=== PATIENT | female | born 2000 | race American Indian/Alaskan Native ===

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

== ENCOUNTER 2019-07-21 16:32 | Emergency (ER) | payer SELFPAY ==
--- NOTE | 2019-07-21 16:57 | Emergency Department Report ---
Blank Doc - Documentation Documentation: 19-year-old female that presents with pelvic pain and vaginal discharge. This initial assessment/diagnostic orders/clinical plan/treatment(s) is/are subject to change based on patient's health status, clinical progression and re- assessment by fellow clinical providers in the ED. Further treatment and workup at subsequent clinical providers discretion. Patient/guardians urged not to elope from the ED as their condition may be serious if not clinically assessed and managed. Initial orders include: 1- Patient sent to [facility] for further evaluation and treatment 2- UA 3- pelvic exam to be done
[2019-07-21 18:16] LABS: Bacteria,Urine 1+ /HPF (Negative); Bilirubin,Urine NEG (Negative); Blood,Urine MOD (Negative); Color,Urine Yellow (Yellow); Protein,Urine <15 mg/dL mg/dL (Negative); Urobilinogen,Urine < 2.0 mg/dL (<2.0)
[2019-07-21 18:18] LABS: HCG Qualitative,Urine Negative (Negative)
--- NOTE | 2019-07-21 21:08 | Emergency Department Report ---
ED Female HPI - General Chief complaint: Urogenital-Female Stated complaint: PELVIC PAIN/CRAMPS Time Seen by Provider: 07/21/19 16:56 Source: patient Mode of arrival: Ambulatory Limitations: No Limitations - History of Present Illness Initial comments: 19-year-old -[place] female presents to the emergency room for pelvic pain 2 days. Patient states that she is constipated but last bowel movement was yesterday consisting of diarrhea 3-4 episodes. Patient also complains of clear vaginal discharge with no odor. Patient's last menstrual period was 07/14/2019. She is 1. Para 1. Patient is sexually active without protection one partner in the last 6 months. Patient last STD check was 1 year ago. MD Complaint: pelvic pain Onset/Timin -: days(s) Location: suprapubic Radiation: non-radiating Severity: mild Quality: cramping Consistency: intermittent Improves with: none Worsens with: none Are you Now?: No Last Menstrual Period: 07/14/19 EDC: 04/19/20 Associated Symptoms: vaginal discharge (clear no odor). denies: nausea/vomiting, fever/chills - Related Data Sexually active: Yes : 1 Para: 1 Home Medications Medication Instructions Recorded Confirmed Last Taken Ferrous Sulfate [Feosol] 325 mg PO QDAY 10/13/16 10/13/16 10/12/16 Vit-Fe Fumar-FA [ 1 tab PO QDAY 10/13/16 10/13/16 10/12/16 Vitamin] Previous Rx's Medication Instructions Recorded Last Taken Type Nitrofurantoin [place]/M-Cryst 100 mg PO Q12HR 7 Days #14 capsule 07/21/19 Unknown Rx [Macrobid CAP] Allergies Allergy/AdvReac Type Severity Reaction Status Date / Time No Known Allergies Allergy Unverified 06/02/16 10:42 ED Review of Systems ROS: Stated complaint: PELVIC PAIN/CRAMPS Other details as noted in HPI Comment: All other systems reviewed and negative ED Past Medical Hx - Past Medical History Hx Hypertension: No Hx Congestive Heart Failure: No Hx Diabetes: No Hx Deep Vein Thrombosis: No Hx Renal Disease: No Hx Sickle Cell Disease: No Hx Seizures: No Hx Asthma: No Hx COPD: No Hx HIV: No - Surgical History Past Surgical History?: No - Social History Smoking Status: Current Some Day Smoker Substance Use Type: Alcohol - Medications Home Medications: Home Medications Medication Instructions Recorded Confirmed Last Taken Type Ferrous Sulfate [Feosol] 325 mg PO QDAY 10/13/16 10/13/16 10/12/16 History Vit-Fe Fumar-FA [ 1 tab PO QDAY 10/13/16 10/13/16 10/12/16 History Vitamin] Nitrofurantoin [place]/M-Cryst 100 mg PO Q12HR 7 Days #14 capsule 07/21/19 Unknown Rx [Macrobid CAP] ED Physical Exam - General Limitations: No Limitations General appearance: alert, in no apparent distress - Head Head exam: Present: atraumatic, normocephalic - Eye Eye exam: Present: normal appearance - ENT ENT exam: Present: mucous membranes moist - Neck Neck exam: Present: normal inspection - Respiratory Respiratory exam: Present: normal lung sounds bilaterally. Absent: respiratory distress - Cardiovascular Cardiovascular Exam: Present: regular rate, normal rhythm. Absent: systolic murmur, diastolic murmur, rubs, gallop - GI/Abdominal GI/Abdominal exam: Present: soft, tenderness (per cubic), normal bowel sounds - Extremities Exam Extremities exam: Present: normal inspection - Back Exam Back exam: Present: normal inspection - Neurological Exam Neurological exam: Present: alert, oriented X3, normal gait - Psychiatric Psychiatric exam: Present: normal affect, normal mood - Skin Skin exam: Present: warm, dry, intact, normal color. Absent: rash ED Course Vital Signs 07/21/19 16:54 Temperature 99.1 F Pulse Rate 87 Respiratory 16 Rate Blood Pressure 130/73 O2 Sat by Pulse 100 Oximetry ED Medical Decision Making - Medical Decision Making 19-year-old -[place] female presents to the emergency room for pelvic pain 2 days. Patient states that she is constipated but last bowel movement was yesterday consisting of diarrhea 3-4 episodes. Patient also complains of clear vaginal discharge with no odor. Patient's last menstrual period was 07/14/2019. She is 1. Para 1. Patient is sexually active without protection one partner in the last 6 months. Patient last STD check was 1 year ago. UA shows positive for urinary tract infection. Patient be placed on Macrobid 100 mg by mouth twice a day for 7 days. Patient can take ibuprofen or Tylenol for pelvic pain. Patient is increase her fluid intake. Patient is to void after intercourse. Patient's a follow-up with a [facility] or primary care provider. Critical care attestation.: If time is entered above; I have spent that time in minutes in the direct care of this critically ill patient, excluding procedure time. ED Disposition Clinical Impression: UTI (urinary tract infection) Disposition: TO HOME OR SELFCARE Is pt being admited?: No Does the pt Need Aspirin: No Condition: Stable Instructions: Urinary Tract Infection in Women (ED) Additional Instructions: Increase her fluid intake. Complete antibiotics. Void after intercourse. Follow-up with [facility] or health Department. For further testing. Prescriptions: Nitrofurantoin [place]/M-Cryst [Macrobid CAP] 100 mg PO Q12HR 7 Days #14 capsule Referrals: [facility] [Provider Group] - 3-5 Days Forms: Work/School Release Form(ED)
[2019-07-21 21:50] VITALS: BP 113/69
== END 2019-07-21 21:50 | disposition home or self-care (01) ==
LOC: ED 16:32
DX: N39.0 Urinary tract infection, site not specified (principal); F17.200 Nicotine dependence, unspecified, uncomplicated
CPT/HCPCS: 81001; 81025; 87086; 99283

== ENCOUNTER 2020-07-07 08:28 | Emergency (ER) | payer SELFPAY ==
[2020-07-07] MEDS ORDERED: IBUPROFEN 600 MG TAB PO ONE ×2 (08:44→08:46)
[2020-07-07 08:46] VITALS: BP 130/88
--- NOTE | 2020-07-07 08:47 | Emergency Department Report ---
ED General Adult HPI - General Stated complaint: THROAT PAIN/HARD TO SWALLOW PUI?: No Source: patient - History of Present Illness Initial comments: 20-year-old -Citizen Of [place] female patient presents with complaints of sore throat x3 days. Patient rates her current pain is a 10/10 in severity states it worsens with swallowing. She denies any fever/chills/sweats, chest pain, cough, shortness of breath, or rashes. No primary medical history per patient or history of recurrent strep infections. She also denies any trouble opening her jaw - Related Data Home Medications Medication Instructions Recorded Confirmed Last Taken Ferrous Sulfate [Feosol] 325 mg PO QDAY 10/13/16 10/13/16 10/12/16 Vit-Fe Fumar-FA [ 1 tab PO QDAY 10/13/16 10/13/16 10/12/16 Vitamin] Previous Rx's Medication Instructions Recorded Last Taken Type Nitrofurantoin [place]/M-Cryst 100 mg PO Q12HR 7 Days #14 capsule 07/21/19 Unknown Rx [Macrobid CAP] Amoxicillin [Trimox CAP] 500 mg PO BID 10 Days #20 capsule 07/07/20 Unknown Rx Ibuprofen [Motrin 800 MG tab] 800 mg PO Q8HR PRN #20 tablet 07/07/20 Unknown Rx Allergies Allergy/AdvReac Type Severity Reaction Status Date / Time No Known Allergies Allergy Unverified 06/02/16 10:42 ED Review of Systems ROS: Stated complaint: THROAT PAIN/HARD TO SWALLOW Other details as noted in HPI Constitutional: denies: chills, diaphoresis, fever, malaise ENT: throat pain. denies: ear pain Respiratory: denies: cough, shortness of breath Cardiovascular: denies: chest pain Skin: denies: rash, lesions, change in color Neurological: denies: headache, weakness Hematological/Lymphatic: swollen glands ED Past Medical Hx - Past Medical History Hx Hypertension: No Hx Congestive Heart Failure: No Hx Diabetes: No Hx Deep Vein Thrombosis: No Hx Renal Disease: No Hx Sickle Cell Disease: No Hx Seizures: No Hx Asthma: No Hx COPD: No Hx HIV: No - Social History Smoking Status: Current Some Day Smoker Substance Use Type: Alcohol - Medications Home Medications: Home Medications Medication Instructions Recorded Confirmed Last Taken Type Ferrous Sulfate [Feosol] 325 mg PO QDAY 0410/13/16 10/12/16 History Vit-Fe Fumar-FA [ 1 tab PO QDAY 10/13/16 10/13/16 10/12/16 History Vitamin] Nitrofurantoin [place]/M-Cryst 100 mg PO Q12HR 7 Days #14 capsule 07/21/19 Unknown Rx [Macrobid CAP] Amoxicillin [Trimox CAP] 500 mg PO BID 10 Days #20 capsule 07/07/20 Unknown Rx Ibuprofen [Motrin 800 MG tab] 800 mg PO Q8HR PRN #20 tablet 07/07/20 Unknown Rx ED Physical Exam - General General appearance: alert, in no apparent distress - Head Head exam: Present: atraumatic, normocephalic - Eye Eye exam: Present: normal appearance. Absent: scleral icterus - ENT ENT exam: Present: mucous membranes moist - Expanded ENT Exam Expanded Mouth exam: Present: tongue normal. Absent: drooling, trismus, muffled voice Teeth exam: Absent: dental caries Throat exam: Positive: tonsillar erythema (Bilateral), tonsillar exudate (Bilateral), other. Negative: R peritonsillar mass, L peritonsillar mass - Neck Neck exam: Present: full ROM, lymphadenopathy (Bilateral anterior cervical, mild) - Respiratory Respiratory exam: Present: normal lung sounds bilaterally. Absent: respiratory distress - Cardiovascular Cardiovascular Exam: Present: tachycardia (Mild) - Neurological Exam Neurological exam: Present: alert, oriented X3 - Psychiatric Psychiatric exam: Present: normal affect, normal mood - Skin Skin exam: Present: warm, dry, intact, normal color. Absent: rash ED Course Vital Signs 07/07/20 07/07/20 08:44 09:48 Temperature 100.1 F H 99.0 F Pulse Rate 100 H 100 H Respiratory 18 Rate Blood Pressure 130/88 O2 Sat by Pulse 97 Oximetry ED Medical Decision Making - Medical Decision Making 20-year-old -Citizen Of [place] female patient presents with complaints of sore throat x3 days. Patient rates her current pain is a 10/10 in severity states it worsens with swallowing. She denies any fever/chills/sweats, chest pain, cough, shortness of breath, or rashes. No primary medical history per patient or history of recurrent strep infections. She also denies any trouble opening her jaw Tonsillar erythema and exudate noted on exam bilaterally. Will treat empirically for strep pharyngitis with Amoxil. Recommend follow-up with PCP in 3 to 5 days. Her vitals are stable, she is nontoxic-appearing, she is stable for discharge home. Strict return precautions were discussed in detail with patient who verbalizes understanding Critical care attestation.: If time is entered above; I have spent that time in minutes in the direct care of this critically ill patient, excluding procedure time. ED Disposition Clinical Impression: Strep pharyngitis Disposition: TO HOME OR SELFCARE Is pt being admited?: No Condition: Stable Instructions: Strep Throat, Adult Prescriptions: Ibuprofen [Motrin 800 MG tab] 800 mg PO Q8HR PRN #20 tablet PRN Reason: pain Amoxicillin [Trimox CAP] 500 mg PO BID 10 Days #20 capsule Referrals: [facility] [Provider Group] - 3-5 Days Forms: Work/School Release Form(ED)
== END 2020-07-07 09:48 | disposition home or self-care (01) ==
LOC: ED 08:28
DX: J02.0 Streptococcal pharyngitis (principal); F17.200 Nicotine dependence, unspecified, uncomplicated; Z79.899 Other long term (current) drug therapy
CPT/HCPCS: 99282

== ENCOUNTER 2021-04-14 13:52 | Emergency (ER) | payer OTHER ==
[2021-04-14 14:53] VITALS: BP 125/92
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
== END 2021-04-14 15:37 | disposition home or self-care (01) ==
LOC: ED 13:52
DX: S16.1XXA Strain of muscle, fascia and tendon at neck level, initial encounter (principal); F17.200 Nicotine dependence, unspecified, uncomplicated; Z79.899 Other long term (current) drug therapy; V89.2XXA Person injured in unspecified motor-vehicle accident, traffic, initial encounter; Y93.89 Activity, other specified; Y92.488 Other paved roadways as the place of occurrence of the external cause; Y99.8 Other external cause status
CPT/HCPCS: 99282